=== PATIENT | male | born 1965 | race Caucasian/White ===

== ENCOUNTER → 2023-06-16 08:57 | Outpatient (CLI) | payer OTHER, SELFPAY ==
--- NOTE | ~2023-06-16 | MR_ITS ---
MRI of the right shoulder Technique: Axial proton-density fat-sat images, coronal proton density fat-sat and T2 fat-sat images, and sagittal T1-weighted and T2 fat-sat images were acquired. Clinical History: Pain Findings: There is moderate AC joint degenerative change. Coracoclavicular, coracoacromial, and corac ohumeral ligaments are intact. There is a 5 mm low-grade articular surface partial tear focally at the distal infraspinatus tendon i nsertion. No partial or full-thickness tear of the supraspinatus tendon identified. There is minimal tendinosis. Subscapularis tendon is intact. Tendon of long head of the biceps is intact. No definite labral tear identified. There is mild diffuse chondral thinning of the glenohumeral joint. Inferior glenohumeral ligament is intact. No joint effusion. No fluid distention of the subacromial/subdeltoid bursa. No muscle atrophy or edema. Impression: 5 mm low-grade articular surface partial tear focally the distal infraspinatus tendon insertion. Moderate AC joint degenerative change. Mild diffuse chondral thinning of the glenohumeral joint. Reviewed, dictated and finalized at [facility]. NING SUPPORT AIDE Impression: 5 mm low-grade articular surface partial tear focally the distal infraspinatus tendon insertion. Moderate AC joint degenerative change. Mild diffuse chondral thinning of the glenohumeral joint.
== END ==
PROVIDERS: PCP Nurse Practitioner Family; Visit Provider Nurse Practitioner Family
DX: M19.011 Primary osteoarthritis, right shoulder (principal); M25.552 Pain in left hip
CPT/HCPCS: 73221

== ENCOUNTER 2024-04-04 10:28 | Outpatient (CLI) | payer SELFPAY ==
--- NOTE | ~2024-04-04 | US_ITS ---
EXAMINATION: US thyroid DATE: 04/04/2024 10:42 INDICATION: Thyroid nodule. TECHNIQUE: Multiple ultrasound images of the thyroid were obtained. COMPARISON: None. FINDINGS: The right thyroid lobe measures 3.3 x 1.5 x 1.6 cm. The left thyroid lobe measures 2.9 x 1.1 x 1.3 c m. There is normal echotexture and echogenicity throughout the thyroid gland. No discrete nodules id entified. Normal vascular flow is present. IMPRESSION: 1. Normal thyroid. Reviewed, dictated and finalized at location [facility]. IMPRESSION: 1. Normal thyroid.
== END 2024-04-04 10:29 | disposition home or self-care (01) ==
PROVIDERS: PCP Nurse Practitioner Family; Visit Provider Nurse Practitioner Family
DX: E04.1 Nontoxic single thyroid nodule (principal); I10 Essential (primary) hypertension; M25.511 Pain in right shoulder; E78.5 Hyperlipidemia, unspecified; R45.89 Other symptoms and signs involving emotional state
CPT/HCPCS: 76536